=== PATIENT | male | born 1995 | race Caucasian/White ===

== ENCOUNTER 2025-03-03 19:10 | Emergency (ER) | payer OTHER ==
--- NOTE | 2025-03-03 19:26 | ERPHSYRPT ---
- History of Present Illness Time Seen by Provider: 03/03/25 19:26 Historian: patient, family Exam Limitations: no limitations Physician History: This is a 29-year-old white male patient who arrives to the emergency department by private vehicle driven in by patient girlfriend and is a patient of Dr. Flores with an rated right inguinal hernia. Patient has known 4 months that he has had a hernia. He has always been able to reduce it on his own. However this morning, he has had worsening pain with associated nausea and 1 episode of vomiting with inability to reduce this incarcerated right inguinal hernia. Timing/Duration: today Activities at Onset: none Quality: cramping Abdominal Pain Onset Location: other (Right inguinal/groin region) Pain Radiation: groin Severity of Pain-Max: moderate Severity of Pain-Current: moderate Modifying Factors: Improves With: vomiting (Vomited once) Associated Symptoms: nausea, vomiting (Vomited once) Previous symptoms: same symptoms as today, no recent treatment Allergies/Adverse Reactions: No Known Drug Allergies Allergy (Unverified 03/03/25 19:27) Home Medications: Buspirone HCl [Bucapsol] 10 mg PO DAILY 03/03/25 [History] Travel Risk - International Travel Have you traveled outside of the country in past 3 weeks: No - Emerging Infectious Disease Are you exhibiting symptoms associated with any current EIDs: No - Review of Systems Constitutional: No Symptoms Eyes: No Symptoms Ears, Nose, & Throat: No Symptoms Respiratory: No Symptoms Cardiac: No Symptoms Abdominal/Gastrointestinal: Nausea, Vomiting (Vomited once) Genitourinary Symptoms: Other (Incarcerated right inguinal hernia) Musculoskeletal: No Symptoms Skin: No Symptoms Neurological: No Symptoms Psychological: No Symptoms Endocrine: No Symptoms Hematologic/Lymphatic: No Symptoms Immunological/Allergic: No Symptoms All Other Systems: Reviewed and Negative - Past Medical History Pertinent Past Medical History: Yes - Nursing Vital Signs Nursing Vital Signs: Initial Vital Signs Temperature 98.5 F 03/03/25 19:28 Pulse Rate 54 L 03/03/25 19:28 Respiratory Rate 18 03/03/25 19:28 Blood Pressure 158/90 03/03/25 19:28 O2 Sat by Pulse Oximetry 99 03/03/25 19:28 Pain Scale Pain Intensity 10 - Physical Exam General Appearance: mild distress, alert, anxiety, thin Eye Exam: PERRL/EOMI, eyes nml inspection Ears, Nose, Throat Exam: normal ENT inspection, moist mucous membranes Neck Exam: normal inspection, non-tender, supple, full range of motion Respiratory Exam: airway intact, No chest tenderness, No respiratory distress Gastrointestinal/Abdomen Exam: No tenderness Male Genitalia Exam: hernia (Right inguinal hernia that is incarcerated with bowel content in the scrotal sac on the right side) Rectal Exam: not done Back Exam: normal inspection, normal range of motion, No CVA tenderness, No vertebral tenderness Extremity Exam: normal inspection, normal range of motion, pelvis stable Neurologic Exam: alert, oriented x 3, cooperative, boatswain's mate II-XII nml as tested, nml cerebellar function, nml station & gait, sensation nml Skin Exam: normal color, warm, dry Lymphatic Exam: No adenopathy SpO2 Interpretation: normal O2 Delivery: Room Air Procedures - Additional Procedures Progress: Timeout performed at 2100. No anesthesia necessary. There was manual reduction of an incarcerated right inguinal hernia without complications. Patient felt immediate relief of his nausea and pain. Patient refusing CT scan of the abdomen pelvis - Course Nursing assessment & vital signs reviewed: Yes Ordered Tests: Active Orders 24 hr Category Date Time Status IV Insertion STAT Care 03/03/25 20:09 Active Medication Summary Discontinued Medications Generic Name Dose Route Start Last Admin Trade Name James PRN Reason Stop Dose Admin Ondansetron HCl 4 mg 03/03/25 20:09 03/03/25 20:10 Ondansetron Hcl 4 Mg/2 Ml Vial IV 03/03/25 20:10 4 mg STAT ONE Administration Ondansetron HCl Confirm 03/03/25 20:08 Ondansetron Hcl 4 Mg/2 Ml Vial Administered 03/03/25 20:09 Dose 4 mg .ROUTE .[employer] ONE - Progress Progress: improved Progress Note: 03/03/25 21:24 My medical decision making and the assignment of low complexity of this patient's medical issue today is based on review of the patient's past medical history, review the patient's medication list, reviewed patient drug allergy list, history present notes and physical findings on examination. The workup recommended to this patient was a post reduction of an incarcerated right inguinal hernia with a CT scan of the abdomen pelvis. Patient is refusing this. Patient will sign refusal of treatment/testing. I discussed the benefits of obtaining that test and the risk of not performing that study. Patient declines the test and will sign the form. Differential diagnosis includes was not limited to incarcerated right inguinal hernia, indirect right inguinal hernia, direct radial hernia Counseled pt/family regarding: diagnosis, need for follow-up Medical Desision Making - Diagnostic Testing Diagnostic test were ordered, analyzed, and reviewed by me: No - Risk of complications Low Risk: Low risk of morbidity from additional dx testing or treatment - Departure Departure Disposition: Home Clinical Impression: Incarcerated right inguinal hernia Condition: Stable Critical Care Time: No Referrals: GAYATHRI FLORES MD [Primary Care Provider, [facility]] - Follow up/PCP as directed Additional Instructions: No lifting more than 10 pounds. No running or jumping. Proceed to a medical equipment store to purchase an inguinal hernia compression device/undergarment. Call your primary care provider on 03/06/2025, to make arrangements for follow-up appointment for further evaluation and management. Make certain you discussed with him about obtaining a general surgery consultation for repair of your right inguinal hernia right away.
[2025-03-03 19:45] VITALS: TEMP 98.5
[2025-03-03] MEDS ORDERED: Zofran 4 MG/2 ML VIAL ONE (20:08)
[2025-03-03] MEDS: Zofran 4 MG/2 ML VIAL IV ONE (20:10)
[2025-03-03 21:21] VITALS: RESP 18
[2025-03-03 21:32] VITALS: BP 115/63; PULSE 72; O2SAT 97
== END 2025-03-03 21:38 | disposition home or self-care (01) ==
LOC: ED 19:10
DX: K40.30 Unilateral inguinal hernia, with obstruction, without gangrene, not specified as recurrent (principal); R11.2 Nausea with vomiting, unspecified; Z79.899 Other long term (current) drug therapy